=== PATIENT | female | born 1955 | race African-American/Black ===

== ENCOUNTER 2020-10-27 13:45 | Inpatient (IN) | payer MEDICARE, MEDICAID, SELFPAY ==
[2020-10-27] VITALS (17 sets, daily range): BP systolic 124–236; BP diastolic 92–144; PULSE 77–132; RESP 16–37; TEMP 36.5–36.7; O2SAT 97–100; BMI 35.0
--- NOTE | ~2020-10-27 | CT_ITS ---
EXAMINATION: CTA chest PE abdomen pel DATE: 10/27/2020 15:11 INDICATION: Shortness of breath TECHNIQUE: Computed tomography angiography (CTA) of the chest was performed with 100 mL Omnipaque-350 intravenous contrast timed to evaluate the pulmonary arteries. Subsequent postcontrast images of the abdomen and pelvis are obtained. Coronal maximum intensity projection 3D-reconstructions were create d by the technologist. The dose-length product (DLP) was 2114.24 mGy-cm. Automated exposure control a nd iterative reconstruction technique were employed. COMPARISON: None. FINDINGS: CTA CHEST: The pulmonary arteries are moderately well-opacified. Respiratory motion artifact somewhat limits the examination. No pulmonary embolism is identified. Cardiomegaly is noted. There is a moder ate-sized pericardial effusion. Small pleural effusions are present. There is no pneumothorax. There is marked enlargement of the left thyroid lobe and moderate enlargement of the right thyroid lobe. Pa tchy groundglass opacities are present throughout the lungs, worst in the right lower lobe. A small a aimee of more focal consolidation is present in the right upper lobe. There is mild right hilar and rig ht paratracheal lymphadenopathy. There are bridging osteophytes at multiple levels in the spine, cons istent with diffuse idiopathic skeletal hyperostosis (DISH). ABDOMEN/PELVIS CT: The gallbladder is surgically absent. There is mild enlargement of the common bile duct and central intrahepatic ducts which is likely due to post cholecystectomy state. The liver, sp erica, pancreas, and adrenal glands are normal. Cysts of the kidneys measure up to 4.2 cm on the right . There is calcified atherosclerosis of the aorta and many of the other arteries. No pathologically e nlarged abdominal or pelvic lymph nodes are identified. There is no free intraperitoneal gas or evide nce of bowel obstruction. The appendix is normal. There is moderate lumbar spondylosis. IMPRESSION: 1. No pulmonary embolism identified, sensitivity somewhat limited by motion artifact. 2. Cardiomegaly. 3. Moderate-sized pericardial effusion. 4. Patchy groundglass opacities of the lungs which could reflect pneumonia and/or pulmonary edema. Mo re focal consolidation in the right upper lobe likely reflects pneumonia. 5. Marked thyromegaly. Follow-up with nonemergent thyroid ultrasound is recommended. 6. Right hilar and right paratracheal lymphadenopathy, likely reactive. Reviewed, dictated and finalized at location A. K LOADER IMPRESSION: 1. No pulmonary embolism identified, sensitivity somewhat limited by motion art ifact. 2. Cardiomegaly. 3. Moderate-sized pericardial effusion. 4. Patchy groundglass opacities of the lungs which could reflect pneumonia and/ or pulmonary edema. More focal consolidation in the right upper lobe likely ref lects pneumonia. 5. Marked thyromegaly. Follow-up with nonemergent thyroid ultrasound is recomme nded. 6. Right hilar and right paratracheal lymphadenopathy, likely reactive.
--- NOTE | ~2020-10-27 | XR_ITS ---
EXAMINATION: XR chest 1V portable EXAM DATE: 10/27/2020 14:21 INDICATION: Shortness of breath. TECHNIQUE: Portable AP frontal chest x-ray was obtained. There is no prior study for comparison. FINDINGS: Severe cardiomegaly and/or pericardial effusion. There is pulmonary vascular congestion. Th ere is diffuse groundglass density airspace disease, edema and/or pneumonia most likely. No pneumotho rax. Possible small pleural effusions. There are bony degenerative changes. IMPRESSION: 1. Severe cardiomegaly and/or pericardial effusion. 2. Moderate groundglass opacity involving all lung zones, likely pneumonia and/or edema. Reviewed, dictated and finalized at location A. ROBE CUSTODIAN IMPRESSION: 1. Severe cardiomegaly and/or pericardial effusion. 2. Moderate groundglass opacity involving all lung zones, likely pneumonia and /or edema.
--- NOTE | ~2020-10-27 | XR_ITS ---
EXAMINATION: XR chest 2V DATE: 10/29/2020 09:31 INDICATION: Congestive heart failure. Dyspnea. TECHNIQUE: Frontal and lateral views of the chest were obtained. COMPARISON: Chest single view 10/27/2020, chest CT 10/27/2020 FINDINGS: There is mild atelectasis in the lower lung zones. There is a trace right pleural effusion. No pneumothorax. There is enlargement of the cardiac silhouette. Surgical clips in the right upper q uadrant are likely from cholecystectomy. IMPRESSION: 1. Trace right pleural effusion. 2. Mild atelectasis in the lower lung zones. 3. Enlargement of the cardiac silhouette, likely a combination of cardiomegaly and pericardial effusi on as seen on the prior CT. Reviewed, dictated and finalized at location B. ING AID REPAIR TECHNICIAN IMPRESSION: 1. Trace right pleural effusion. 2. Mild atelectasis in the lower lung zones. 3. Enlargement of the cardiac silhouette, likely a combination of cardiomegaly and pericardial effusion as seen on the prior CT.
--- NOTE | ~2020-10-27 | US_ITS ---
EXAMINATION: US renal BI DATE: 10/28/2020 17:13 INDICATION: Elevated creatinine TECHNIQUE: Multiple grayscale and Doppler ultrasound images of the kidneys were obtained. COMPARISON: CT from yesterday FINDINGS: The right kidney measures 8.8 x 4.5 x 4.1 cm and contains cysts which measure up to 4.3 cm. The left kidney measures 10.6 x 4.6 x 5.3 and contains cysts which measure up to 4.0 cm. The kidneys demonstrate normal parenchymal echogenicity. There is no hydronephrosis. The bladder is normal. IMPRESSION: 1. Renal cysts, otherwise normal kidneys without hydronephrosis. Reviewed, dictated and finalized at location A. IER BLOWER
--- NOTE | 2020-10-27 13:48 | ECG_ITS ---
Measurements Intervals [place] Rate: 136 P: -76 CA: 124 QRS: -31 QRSD: 129 T: 123 QT: 325 QTc: 489 Interpretive Statements ECTOPIC ATRIAL TACHYCARDIA LEFT AXIS DEVIATION INTRAVENTRICULAR CONDUCTION DELAY LEFT VENTRICULAR HYPERTROPHY AND ST-T CHANGE CANNOT RULE OUT SEPTAL INFARCT, AGE INDETERMINATE BASELINE ARTIFACT- I, II, III, AVR, AVL, AVF ABNORMAL ECG Electronically Signed On 10-27-2020 13:57:01 MECHANICAL STRIPER by Bruce Lloyd D.O.
[2020-10-27] MEDS: MAGNESIUM SULF 2 GM/WATER 50ML 2 GM/50 ML BAG IVPB (14:06)
[2020-10-27] MEDS: FUROSEMIDE INJ 40 MG/4 ML VIAL IV PUSH (14:06)
[2020-10-27] MEDS: LABETALOL HCL INJ 100 MG/20 ML VIAL 20 MG IV PUSH ×2 (14:06→17:24)
[2020-10-27 14:07] LABS: Alveolar/Arterial O2 Gradient 516.7 mmHg; Base Excess ABG -8.7 mEq/l (+/-2.0); Fractional Inspired Oxygen 100 %; HCO3 ABG 19.2 mEq/l (22.0-26.0); Oxygen Content ABG 20.3 %vol (16.0-22.0); Oxygen Saturation ABG 98.5 % (95.0-100.0); Oxyhemoglobin 96.5 % THb (90.0-100.0); PCO2 ABG 48.4 mmHg (35.0-45.0); PO2 ABG 147.9 mmHg (80.0-100.0); PO2 FiO2 Ratio Arterial Blood 1.48 %; Total Hemoglobin 14.8 g/dL (12.0-18.0); pH ABG 7.216 (7.350-7.450)
[2020-10-27 14:08] LABS: Device NON-REBREATHER MASK; Modified Allen's Test Pass; Site Drawn RIGHT RADIAL
[2020-10-27 14:10] LABS: Basophils Absolute Auto 0.1 K/mm3 (0.0-0.1); Basophils Percent Auto 0.5 % (0.2-1.2); Eosinophils Absolute Auto 0.3 K/mm3 (0-0.3); Eosinophils Percent Auto 2.4 % (0-4.4); Hematocrit 45.1 % (37.0-47.0); Hemoglobin 14.5 g/dL (12.0-15.0); Immature Granulocyte Absolute 0.04 K/mm3 (0.00-0.031); Immature Granulocyte Percent A 0.4 % (0-0.5); Lymphocytes Absolute Auto 3.87 K/mm3 (0.9-3.2); Mean Corpuscular HGB Conc 32.2 g/dl (32-36); Mean Corpuscular Hemoglobin 28.2 pg (26-34); Mean Corpuscular Volume 87.6 fl (80-100); Mean Platelet Volume 10.3 fl (7.4-10.4); Monocytes Absolute Auto 0.9 K/mm3 (0.1-0.6); Monocytes Percent Auto 7.9 % (2.6-8.5); Neutrophils Percent Auto 53.8 % (45.5-73.1); Platelet Count Result 345 k/mm3 (150-375); Red Blood Count 5.15 M/mm3 (4.2-5.4); Red Cell Distribution Width 13.9 % (11.5-14.5); White Blood Count 11.1 K/mm3 (4.5-10.0)
--- NOTE | 2020-10-27 14:16 | ED.GENADULT ---
HPI - General Adult General Chief complaint: Shortness of Breath/Dyspnea Stated complaint: SOB Source: patient Mode of arrival: EMS History of Present Illness HPI narrative: Patient is a 64 y/o female brought in by EMS for SOB. She states that she started to have severe SOB earlier today. There is no alleviating or exacerbating factor. She also has some cough. She denies any fever or chest pain. She has history of COPD and CHF. She is not on oxygen at baseline. She was given Albuterol Neb and 10 mg Decadron by EMS. Related Data Allergies Allergy/AdvReac Type Severity Reaction Status Date / Time Penicillins Allergy Rash Verified 10/27/20 13:55 Review of Systems Constitutional: Constitutional: Denies chills, Denies fever(s), Denies headache(s) and Denies weakness Eyes: Eyes: Denies blurry vision ENT: Denies headache(s) and Denies neck pain Cardiovascular: Cardiovascular: Denies chest pain and Reports dyspnea Respiratory: Respiratory: Reports cough and Reports dyspnea Gastrointestinal: Gastrointestinal: Denies abdominal pain, Denies diarrhea, Denies nausea and Denies vomiting Genitourinary: Genitourinary: Denies hematuria and Denies dysuria Musculoskeletal: Musculoskeletal: Denies back pain and Denies neck pain Neurologic: Denies headache(s) and Denies weakness [facility] Social History Social History Gender identity (if verbalized by the patient): Female Exam Const: General: well developed, in distress and anxious Orientation/consciousness: oriented to person, oriented to place, oriented to time and patient oriented x3 HENMT: Head: normocephalic Ears: external ears normal General nose exam: Normal external nose present Eyes: General: appearance normal, both eyes and all related structures Conjunctivae: conjunctivae normal Neck: Neck: normal visual inspection and full ROM Chest: Chest palpation & inspection: normal inspection of the chest and no tenderness Resp: Effort & Inspection: respiratory distress and tachypneic Auscultation: rales and wheezes Cardio: Rate: tachycardic Rhythm: regular rhythm GI: GI Palp: No abdominal tenderness and Yes Soft to palpation Skin: General skin exam: normal color and turgor normal Neuro: General: oriented to person, oriented to place, oriented to time and patient oriented x3 Cognition (Neuro): normal cognition Extrem: General: normal to inspection, full ROM and pedal edema bilaterally Psych: Appearance: grossly normal Mental Status: mental status grossly normal Affect: normal affect Course Consultations Consultation #1: Discussed SHUT OFF WORKER Lainey, who agrees to admit. Date: 10/27/20 Time: 15:44 Vital Signs Vital signs: Vital Signs Temperature 36.5 C 10/27/20 13:42 Pulse Rate 132 H 10/27/20 13:42 Respiratory Rate 37 H 10/27/20 13:42 Blood Pressure 236/144 H 10/27/20 13:42 Pulse Oximetry 97 10/27/20 13:42 Temperature 36.5 C 10/27/20 13:42 Pulse Rate 83 10/27/20 17:32 Respiratory Rate 18 10/27/20 17:32 Blood Pressure 164/114 H 10/27/20 17:32 Pulse Oximetry 98 10/27/20 17:32 Medical Decision Making Vital Signs Vital Signs: Vital Signs Temperature 36.5 C 10/27/20 13:42 Pulse Rate 132 H 10/27/20 13:42 Respiratory Rate 37 H 10/27/20 13:42 Blood Pressure 236/144 H 10/27/20 13:42 Pulse Oximetry 97 10/27/20 13:42 Temperature 36.5 C 10/27/20 13:42 Pulse Rate 83 10/27/20 17:32 Respiratory Rate 18 10/27/20 17:32 Blood Pressure 164/114 H 10/27/20 17:32 Pulse Oximetry 98 10/27/20 17:32 Lab Data Result diagrams: 10/27/20 14:03 10/27/20 14:03 Labs: Lab Results 10/27/20 10/27/20 10/27/20 Range/Units 14:03 14:03 14:03 WBC 11.1 H (4.5-10.0) K/mm3 RBC 5.15 (4.2-5.4) M/mm3 Hgb 14.5 (12.0-15.0) g/dL Hct 45.1 (37.0-47.0) % MCV 87.6 (80-100) fl MCH 28.2 (26-34) pg MCHC 32.2 (32-36) g/
--- NOTE | 2020-10-27 14:20 | PC.NURSE ---
PT TAKEN OFF NRB MASK AND PLACED ON 2 L NC O2 PER VORB EDP DR LINDSEY.
[2020-10-27 14:22] LABS: D Dimer 1.36 ug/mL (<0.48)
[2020-10-27 14:24] LABS: Alanine Aminotransferase 21 U/L (4-35); Albumin Level 4.2 g/dL (3.5-5.1); Alkaline Phosphatase 89 U/L (38-126); Anion Gap 8 mmol/L (8-16); Aspartate Amino Transferase 34 U/L (14-36); Blood Urea Nitrogen 35 mg/dL (7-17); Calcium 8.1 mg/dL (8.4-10.2); Carbon Dioxide 27 mmol/L (22-30); Chloride 106 mmol/L (98-107); Estimated CRCL calculation 46 ml/min; Estimated Glomerular Filt Rate 38; Glucose 203 mg/dL (65-105); Potassium 3.8 mmol/L (3.4-5.0); Sodium 141 mmol/L (137-145)
[2020-10-27 14:38] LABS: NT Pro B Type Natriuretic Pept 2620 PG/ML (5-100); Troponin I 0.063 ng/mL (0.000-0.034)
--- NOTE | 2020-10-27 14:46 | PC.NURSE ---
up to bedside commode - pt tolerated well. Able to speak in full sentences
[2020-10-27 14:56] LABS: Add Urine Microscopic? YES; Appearance Urine Clear (Clear); Bilirubin Urine Negative (Negative); Blood Urine Negative (Negative); Color Urine Straw (Yellow); Glucose Urine UA 2+ mg/dL (Negative); Ketones Urine Negative (Negative); Leukocyte Esterase Ur Negative LEU/UL (Negative); Mucus Urine Rare /lpf; Nitrate Urine Negative (Negative); Protein Urine 3+ mg/dL (Negative); RBC Urine 0-2 /hpf (0-2); Squamous Epithelial Cell Urine Rare /hpf (Few); Urobilinogen Urine Negative mg/dL (<2.0); WBC Urine 0-3 /hpf
--- NOTE | 2020-10-27 14:58 | PC.NURSE ---
PT TO CT SCAN VIA STRETCHER.
[2020-10-27 16:01] LABS: Fractional Inspired Oxygen 21 %; HCO3 ABG 20.5 mEq/l (22.0-26.0); Oxygen Content ABG 19.6 %vol (16.0-22.0); Oxygen Saturation ABG 97.4 % (95.0-100.0); Oxyhemoglobin 95.7 % THb (90.0-100.0); PCO2 ABG 39.9 mmHg (35.0-45.0); PO2 ABG 104.1 mmHg (80.0-100.0); PO2 FiO2 Ratio Arterial Blood 4.96 %; Site Drawn RIGHT RADIAL; Total Hemoglobin 14.5 g/dL (12.0-18.0); pH ABG 7.329 (7.350-7.450)
[2020-10-27 16:02] LABS: Device ROOM AIR
--- NOTE | 2020-10-27 16:18 | PC.NURSE ---
SPOKE TO PTS SISTER ON THE PHONE AND GAVE UPDATE PER PT VERBAL OKAY.
[2020-10-27] MEDS: amLODIPine BESYLATE 5 MG TABLET 10 MG PO (16:32)
[2020-10-27] MEDS: lisinopriL 20 MG TABLET PO (16:32)
[2020-10-27] MEDS: carvediloL 12.5 MG TABLET PO (17:01)
[2020-10-27 17:08] LABS: Troponin I 0.105 ng/mL (0.000-0.034)
--- NOTE | 2020-10-27 18:37 | ADMGEN ---
This patient, Lisa Kaur, was admitted to IMU Room 204-01. Patient/family oriented to hospital policies and general routines including ID bracelet, bed and alarms, visiting hours, pain management, procedures, bathroom and other care routines, personal items, smoking policy, room service/diet, and visiting hours. Information on how to activate the Rapid Response Team has been discussed. Patient/Family are encouraged to report perceived risks to care and to ask questions if they do not understand what they are told or what they should do.
--- NOTE | 2020-10-27 19:33 | PM.IMHP ---
H&P: HPI History of Present Illness Date/Time: 10/27/20 19:33 Chief Complaint: Increasing shortness of breath today at the store Narrative: This is a 64 year old Female with known CHF, COPD, and HTN who presented to the hospital with a complaint of increased shortness of breath that started today while standing in line at the drugstore today. She has noticed that she has had increased lower extremity swelling recently. Associated symptoms include wheezing and a productive cough of yellowish sputum. She is known to previously smoke 1 pack of cigarettes/week and quit 16 years ago. She denies any fever, chills, chest pain, palpitations, sore throat, headache, abdominal pain, dysuria, hematuria, nausea, vomiting, diarrhea, or rectal bleeding. She was given Decadron and albuterol. The patient was evaluated in the ER today and found to have a mildly elevated troponin of 0.105. CTA chest did not demonstrate a pulmonary embolism but did reveal a moderate-sized pericardial effusion and patchy groundglass opacities of the lungs which could reflect pneumonia and/or pulmonary edema. More focal consolidation in the right upper lobe likely reflects pneumonia. The patient was admitted for further care. Review of Systems Review of Systems: All systems reviewed & are unremarkable except as noted in HPI and below PMFSH Past Medical History Medical History CHF (congestive heart failure) COPD (chronic obstructive pulmonary disease) Essential (primary) hypertension Surgical History Surgical History History of knee replacement Family History Family History Sibling Hypertension Social History Social History Smoking status: Former smoker Tobacco type: cigarettes Second hand tobacco smoke exposure: No Additional smoking assessment comments: smoked a pack a week Alcohol intake: never Substance use: never Substance use type: does not use Gender identity (if verbalized by the patient): Female Spiritual care concerns: No Meds Home Medications and Allergies Home Medications Medication Instructions Recorded Confirmed Type albuterol sulfate 2 puff INHALATION PRN PRN 10/27/20 10/27/20 History amlodipine 10 mg PO DAILY 10/27/20 10/27/20 History aspirin 81 mg PO DAILY 10/27/20 10/27/20 History calcium carbonate 500 mg PO BID 10/27/20 10/27/20 History cholecalciferol (vitamin D3) 250 mcg PO DAILY 10/27/20 10/27/20 History [Vitamin D3] estradiol 0.5 mg PO DAILY 10/27/20 10/27/20 History furosemide 40 mg PO DAILY 10/27/20 10/27/20 History hydralazine 25 mg PO BID 10/27/20 10/27/20 History labetalol 200 mg PO Q12H 10/27/20 10/27/20 History tramadol 100 mg PO Q6H PRN 10/27/20 10/27/20 History potassium chloride 20 meq PO DAILY 10/28/20 10/28/20 History clonidine HCl 0.2 mg PO TID 30 Days #90 tablet 10/30/20 Rx Allergies Allergy/AdvReac Type Severity Reaction Status Date / Time Penicillins Allergy Intermediate Swelling Verified 10/27/20 18:39 of Lip/Tongue/Throat Vital Signs Vital Signs - 24 hr 10/27/20 13:42 10/27/20 14:04 10/27/20 14:14 Temperature 36.5 C Pulse Rate 132 H 123 H 85 Respiratory Rate 37 H 26 H Blood Pressure 236/144 H 149/95 H Pulse Oximetry 97 99 10/27/20 14:15 10/27/20 15:26 10/27/20 15:54 Temperature Pulse Rate 92 93 Respiratory Rate 20 29 H Blood Pressure 173/116 H 193/124 H Pulse Oximetry 100 99 100 10/27/20 17:01 10/27/20 17:23 10/27/20 17:24 Temperature Pulse Rate 81 82 Respiratory Rate Blood Pressure 174/114 H Pulse Oximetry 10/27/20 17:32 10/27/20 18:00 10/27/20 18:25 Temperature 36.7 C Pulse Rate 83 86 80 Respiratory Rate 18 16 Blood Pressure 164/114 H 124/98 H Pulse Oximetry 98 99 Exam Const: Gener
--- NOTE | 2020-10-27 19:45 | ECG_ITS ---
Measurements Intervals [place] Rate: 82 P: 47 WI: 204 QRS: -38 QRSD: 122 T: 127 QT: 451 QTc: 529 Interpretive Statements SINUS RHYTHM POSSIBLE LEFT ATRIAL ENLARGEMENT LEFT AXIS DEVIATION INTRAVENTRICULAR CONDUCTION DELAY LEFT VENTRICULAR HYPERTROPHY AND ST-T CHANGE POOR R WAVE PROGRESSION, ANTERIOR LEADS BORDERLINE T WAVE ABNORMALITY- ANTEROLATERAL LEADS BASELINE ARTIFACT- V6 ABNORMAL ECG Electronically Signed On 10-27-2020 21:53:10 REVOLVING INVENTORY CLERK by Bruce Lloyd D.O.
[2020-10-27] MEDS: ALBUTEROL SULFATE (*SP) AEROSOL 1 PUFF 2 PUFF INHALATION (20:49)
[2020-10-27 21:01] LABS: Troponin I 0.143 ng/mL (0.000-0.034)
[2020-10-27 21:22] LABS: Glucose Point of Care 188 (65-105)
[2020-10-27] MEDS: ENOXAPARIN 40 MG/0.4 ML SYRINGE SUB-Q (21:39)
[2020-10-27] MEDS: LABETALOL HCL 100 MG TABLET 200 MG PO (21:40)
[2020-10-27 22:35] LABS: SARS-CoV-2 RNA PCR Negative
[2020-10-28] VITALS (17 sets, daily range): BP systolic 118–164; BP diastolic 72–96; PULSE 67–91; RESP 20–22; TEMP 36.2–36.6; O2SAT 97–99
[2020-10-28 05:11] LABS: Basophils Percent Auto 0.1 % (0.2-1.2); Hematocrit 37.9 % (37.0-47.0); Hemoglobin 12.6 g/dL (12.0-15.0); Immature Granulocyte Absolute 0.04 K/mm3 (0.00-0.031); Immature Granulocyte Percent A 0.4 % (0-0.5); Lymphocytes Absolute Auto 0.91 K/mm3 (0.9-3.2); Lymphocytes Percent Auto 8.7 % (18.3-44.2); Mean Corpuscular HGB Conc 33.2 g/dl (32-36); Mean Corpuscular Hemoglobin 27.8 pg (26-34); Mean Corpuscular Volume 83.5 fl (80-100); Mean Platelet Volume 10.1 fl (7.4-10.4); Monocytes Absolute Auto 0.6 K/mm3 (0.1-0.6); Monocytes Percent Auto 5.7 % (2.6-8.5); Neutrophils Percent Auto 85.1 % (45.5-73.1); Platelet Count Result 249 k/mm3 (150-375); Red Blood Count 4.54 M/mm3 (4.2-5.4); Red Cell Distribution Width 13.7 % (11.5-14.5); White Blood Count 10.5 K/mm3 (4.5-10.0)
[2020-10-28] MEDS: ALBUTEROL SULFATE (*SP) AEROSOL 1 PUFF 2 PUFF INHALATION (05:19)
[2020-10-28 05:24] LABS: Hemoglobin A1C 5.4 % (<5.7)
[2020-10-28 05:26] LABS: Anion Gap 6 mmol/L (8-16); Blood Urea Nitrogen 38 mg/dL (7-17); Calcium 7.9 mg/dL (8.4-10.2); Carbon Dioxide 28 mmol/L (22-30); Chloride 103 mmol/L (98-107); Estimated CRCL calculation 42 ml/min; Estimated Glomerular Filt Rate 42; Glucose 104 mg/dL (65-105); Magnesium 1.7 mg/dL (1.6-2.3); Potassium 3.3 mmol/L (3.4-5.0); Sodium 137 mmol/L (137-145)
--- NOTE | 2020-10-28 06:00 | ECHO_ITS ---
Patient Info Name: Lisa Kaur Age: 64 years : 1955 Gender: Female Ht: 68 in Wt: 230 lbs BSA: 2.28 m2 BP: 164 / 94 mmHg Heart Rhythm: Sinus Rhythm Exam Date: 10/28/2020 7:54 AM Exam Location: [facility] Patient Status: Inpatient Admit Date: 10/27/2020 Staff Ordering Physician: Jennifer Hale MD Retail Maintenance Technician: Mj Hebert, LALA, RT Attending Provider: Abhijeet Browning MD Referring Physician: Geoffrey LOYA; Exam Type: CA echo dop color flow w con Study Info Indications I31.3 - Pericardial effusion (noninflammatory) I50.9 - Heart failure, unspecified Complete two-dimensional, color flow and Doppler transthoracic echocardiogram is performed. Strain analysis performed. Summary 1. Complete two-dimensional, color flow and Doppler transthoracic echocardiogram is performed. 2. There is normal left ventricular size with severe concentric hypertrophy. The overall systolic function appears normal with the ejection fraction is 60-65% and no segmental wall motion abnormalities. However the global longitudinal strain is severely diminished at -6% suggesting systolic dysfunction. There is grade 2 diastolic dysfunction. 3. Right ventricular hypertrophy with normal function. 4. Left atrial chamber dimension is severely enlarged. 5. The left atrial septum is bowed to the right suggesting elevated left atrial pressure. 6. There is small pericardial effusion, measuring 0. 7 cm anteriorly 1.4 cm posteriorly, with no evidence of tamponade physiology. 7. Pulmonary pressure cannot be estimated on study. 8. Normal sinus rhythm. Left Ventricle Left ventricular chamber dimension is normal. Left ventricular systolic function is normal, estimated at 60-65%. There is severe concentric increased left ventricular wall thickness. Left ventricular septal wall motion is normal. The left ventricular diastolic function is grade II diastolic dysfunction. Global longitudinal strain is severely elevated at 6 %. There is normal left ventricular size with severe concentric hypertrophy. The overall systolic function appears normal with the ejection fraction is 60-65% and no segmental wall motion abnormalities. However the global longitudinal strain is severely diminished at -6% suggesting systolic dysfunction. There is grade 2 diastolic dysfunction. Right Ventricle Right ventricular chamber dimension is normal. Right ventricular systolic function is normal. Left Atria Left atrial chamber dimension is severely enlarged. Right Atria Right atrial chamber dimension is normal. Aortic Valve The aortic valve is trileaflet. There is no aortic valve sclerosis. There is no aortic valve stenosis. There is trace aortic valve regurgitation. Pulmonic Valve The pulmonic valve is normal. There is no pulmonic valve stenosis. There is no pulmonic regurgitation. Mitral Valve The mitral valve has normal leaflets. There is no mitral valve stenosis. There is trace mitral valve regurgitation. Tricuspid Valve The tricuspid valve leaflets are normal. There is no significant tricuspid valve stenosis. There is no tricuspid valve regurgitation. No pulmonary hypertension, estimated pulmonary arterial systolic pressure is Empty. Pericardium/Pleural The pericardium appears normal. There is small pericardial effusion, measuring 0. 7 cm anteriorly 1.4 cm posteriorly, with no evidence of tamponade physiology. Inferior Vena Cava Normal inferior vena cava with >50% collapse upon inspiration consisten
--- NOTE | 2020-10-28 07:22 | PC.NURSE ---
Pulsus Paradoxsis measurement approx 5mmg. called and aware
[2020-10-28] MEDS: PERFLUTREN LIPID MICROSPHERES 1.5 ML VIAL DILUTED TO 10 ML TOTAL VOLUME IV PUSH (08:27)
[2020-10-28] MEDS: amLODIPine BESYLATE 5 MG TABLET 10 MG PO (08:52)
[2020-10-28] MEDS: cloNIDine HCL 0.1 MG TABLET PO ×3 (08:53→17:36)
[2020-10-28] MEDS: ASPIRIN 81 MG ENTERIC TABLET PO (08:53)
[2020-10-28] MEDS: CALCIUM CARBONATE (TUMS) 500 MG (200 MG ELEMENTAL) PO ×2 (08:53→17:36)
[2020-10-28] MEDS: hydrALAZINE HCL 25 MG TABLET PO ×2 (08:54→17:36)
[2020-10-28] MEDS: CHOLECALCIFEROL 1,000 UNITS TABLET 5000 UNITS PO (08:54)
[2020-10-28] MEDS: estradioL 0.5 MG TABLET PO (08:55)
[2020-10-28] MEDS: LABETALOL HCL 100 MG TABLET 200 MG PO ×2 (08:55→21:11)
[2020-10-28] MEDS: FUROSEMIDE INJ 40 MG/4 ML VIAL IV PUSH ×2 (08:57→17:36)
[2020-10-28] MEDS: POTASSIUM CHLORIDE 20 MEQ TABLET PO ×2 (11:20)
[2020-10-28 12:44] LABS: Glucose Point of Care 108 (65-105)
--- NOTE | 2020-10-28 16:22 | PM.IMPN ---
Progress Note: A&P Assessment and Plan (1) Severe hypertension: Code(s): I10 - Essential (primary) hypertension Status: Acute Assessment and Plan: Re started her home meds Continue to monitor On Telemetry (2) Elevated troponin: Code(s): R77.8 - Other specified abnormalities of plasma proteins Status: Acute Assessment and Plan: Will trend Likely related to uncontrolled HTN. Cardiology consult. (3) Pulmonary edema: Qualifiers: Chronicity: acute Qualified Code(s): J81.0 - Acute pulmonary edema Code(s): J81.1 - Chronic pulmonary edema Status: Acute Assessment and Plan: Likely related to uncontrolled HTN Lasix 40 mg bid BNP is pending. (4) Pericardial effusion: Code(s): I31.3 - Pericardial effusion (noninflammatory) Status: Acute Assessment and Plan: 2DECHO pending Likely secondary to uncontrolled HTN. However patient was found to have thyromegaly wether this is contributing or not it's a possibility. (5) NICK (acute kidney injury): Code(s): N17.9 - Acute kidney failure, unspecified Status: Acute Assessment and Plan: Will obtain a renal US Repeat BMP in am (6) COPD (chronic obstructive pulmonary disease): Qualifiers: COPD type: unspecified COPD Qualified Code(s): J44.9 - Chronic obstructive pulmonary disease, unspecified Code(s): J44.9 - Chronic obstructive pulmonary disease, unspecified Status: Acute Assessment and Plan: Continue breathing treatments However not actively wheezing. (7) Abnormal glucose: Code(s): R73.09 - Other abnormal glucose Status: Acute Assessment and Plan: ISS as needed No history of diabetes Will monitor. (8) Thyromegaly: Code(s): E01.0 - Iodine-deficiency related diffuse (endemic) goiter Status: Acute Assessment and Plan: Will follow up in the outpatient setting. (9) Lung infiltrate: Code(s): R91.8 - Other nonspecific abnormal finding of lung field Status: Acute Assessment and Plan: Started Levofloxacin Although low suspicion clinically Subjective Date/time seen: 10/28/20 16:22 No complains at this. time. Review of Systems Review of Systems: Narrative: Patient states that she had sudden onset sob while going about her daily routine and decided to come to the ED. Constitutional: Comments: no weight changes, no fevers, no rigors, no chills. ENT: Comments: no ear ache, no throat pain, nasal discharge. Cardiovascular: Comments: chest pain, sob, uncontrolled HTN. Respiratory: Comments: No cough, no sputum production. Gastrointestinal: Comments: no n/v/diarrhea/abdominal pain. Musculoskeletal: Comments: B/L LE ankle swelling. Integumentary/Breasts: Comments: no rashes. Neurologic: Comments: no sensory motor deficit. Exam Narrative: Exam Narrative: Patient lying in bed. Const: General: no acute distress, alert, awake and Physically active Nutritional Appearance: average body habitus Orientation/consciousness: patient oriented x3 Limitations: no limitations HENMT: Head: normal to inspection and normocephalic Ears: hearing grossly normal bilaterally General nose exam: Normal external nose present Face and sinus: normal facial exam Eyes: Pupils: Equal, round and reactive pupils present EOM: EOMs intact bilaterally Neck: Neck: no lymphadenopathy, supple and no JVD Lymphatic: no lymphadenopathy noted Resp: Effort & Inspection: able to speak in complete sentences Auscultation: clear to auscultation bilaterally and diminished lung sounds Cardio: Jugular venous distension: no JVD Rate: regular rate Rhythm: regular rhythm GI: GI Palp: Yes Soft to palpation and Yes No hepatosplenomegaly present Skin: General skin exam: normal color Lesions: no lesions Rashes: no rashes Wounds: no wounds Neuro: General: patient oriented x3 and CN's II-XI intact bilaterally Cranial ne
[2020-10-28 16:47] LABS: Basophils Percent Auto 0.2 % (0.2-1.2); Eosinophils Absolute Auto 0.1 K/mm3 (0-0.3); Eosinophils Percent Auto 0.6 % (0-4.4); Hematocrit 36.6 % (37.0-47.0); Hemoglobin 12.1 g/dL (12.0-15.0); Immature Granulocyte Absolute 0.02 K/mm3 (0.00-0.031); Immature Granulocyte Percent A 0.2 % (0-0.5); Lymphocytes Percent Auto 17.6 % (18.3-44.2); Mean Corpuscular HGB Conc 33.1 g/dl (32-36); Mean Corpuscular Hemoglobin 27.9 pg (26-34); Mean Corpuscular Volume 84.3 fl (80-100); Mean Platelet Volume 9.6 fl (7.4-10.4); Monocytes Percent Auto 9.2 % (2.6-8.5); Neutrophils Absolute Auto 7.8 K/mm3 (1.3-6.7); Neutrophils Percent Auto 72.2 % (45.5-73.1); Platelet Count Result 223 k/mm3 (150-375); Red Blood Count 4.34 M/mm3 (4.2-5.4); Red Cell Distribution Width 13.8 % (11.5-14.5); White Blood Count 10.8 K/mm3 (4.5-10.0)
[2020-10-28 16:59] LABS: Anion Gap 5 mmol/L (8-16); Blood Urea Nitrogen 46 mg/dL (7-17); Calcium 7.7 mg/dL (8.4-10.2); Carbon Dioxide 32 mmol/L (22-30); Chloride 101 mmol/L (98-107); Estimated CRCL calculation 32 ml/min; Estimated Glomerular Filt Rate 30; Glucose 103 mg/dL (65-105); Sodium 138 mmol/L (137-145)
[2020-10-28 17:10] LABS: NT Pro B Type Natriuretic Pept 8270 PG/ML (5-100)
[2020-10-28 17:21] LABS: Troponin I 0.125 ng/mL (0.000-0.034)
[2020-10-28 18:03] LABS: Glucose Point of Care 100 (65-105)
[2020-10-28 20:45] LABS: Glucose Point of Care 150 (65-105)
[2020-10-28] MEDS: ENOXAPARIN 40 MG/0.4 ML SYRINGE SUB-Q (21:11)
[2020-10-29] VITALS (15 sets, daily range): BP systolic 109–160; BP diastolic 63–107; PULSE 63–89; RESP 16–20; TEMP 35.8–36.9; O2SAT 95–100
[2020-10-29] MEDS: ALBUTEROL SULFATE (*SP) AEROSOL 1 PUFF 2 PUFF INHALATION ×3 (01:00→21:18)
--- NOTE | 2020-10-29 08:44 | PM.CNCAR ---
Assessment and Plan Assessment and plan (1) Acute diastolic CHF (congestive heart failure): Code(s): I50.31 - Acute diastolic (congestive) heart failure Status: Acute Assessment and Plan: Symptoms, signs suggestive of acute diastolic heart failure exacerbation. Ejection fraction exceeds 65% with severe left atrial enlargement. on presentation EKG showed possible atrial tachycardia which she had no recurrence while in the hospital. She is currently receiving Lasix 40 mg IV b.i.d.. She has worsening renal function with increased creatinine from 1.4-2. However clinically she still has some lower limb edema and elevated JVP. Will repeat chest x-ray today. If chest x-ray shows pulmonary vascular congestion will introduce higher dosage of Lasix. (2) Pericardial effusion: Code(s): I31.3 - Pericardial effusion (noninflammatory) Status: Acute Assessment and Plan: Small pericardial effusion without tamponade. (3) NICK (acute kidney injury): Code(s): N17.9 - Acute kidney failure, unspecified Status: Acute Assessment and Plan: Acute and chronic kidney injury. Could be related to diuretics however she received doses CTA with contrast on October 26 and could be related to contrast kidney injury (4) Severe hypertension: Code(s): I10 - Essential (primary) hypertension Status: Acute Assessment and Plan: On amlodipine 10 mg daily, hydralazine 25 mg b.i.d. and labetalol 200 mg q.12 hours. Suggest increase clonidine to 0.2 t.i.d. History of Present Illness History of Present Illness Consult date/time: Date of since 10/29/20 08:44 Requesting physician: Abhijeet Browning MD Consult reason: congestive heart failure Reason For Visit: CHF Narrative: This 64-year-old female with past medical history HF, COPD, and HTN who presented to the hospital with a complaint of increased shortness of breath that started while standing in line at the drugstore today. Denies chest pain. She has noticed that she has had increased lower extremity swelling 1 day prior to admission. Denies cough, fever, chills. Blood pressure on admission 230/110. She never smoked cigarettes. She used to work in the [employer] industry. She drinks alcohol likely. She states she is compliant with taking medications. She follows up with regional sales manager in [place] dr Gasca. She denies COVID contacts as she states. D-dimer in high at 1.36, creatinine on admission 1.4 and today is 2, cell count on admission 11 K, troponins 0.063, .143 and0.125, chest x-ray reviewed and analyzed myself shows bilateral pulmonary infiltrates. CTA done on October 27 shows bilateral ground-glass opacities, moderate pericardial effusion, cardiomegaly. Echocardiogram done during this admission shows ejection fraction 65%, severe LVH, severe left atrial enlargement, EKG reviewed and analyzed myself shows possible atrial tachycardia. Repeat EKG shows sinus rhythm with LVH, incomplete left bundle-branch block. COVID negative Review of Systems Constitutional: Constitutional: Denies chills, Denies fever(s) and Denies poor appetite Eyes: Eyes: Denies eye discharge, Denies loss of vision, Denies eye pain and Denies photophobia ENT: Denies dizziness, Denies epistaxis, Denies nasal congestion and Denies sore throat Cardiovascular: Cardiovascular: Denies chest pain, Denies syncope, Reports leg edema, Denies palpitations, Reports dyspnea and Reports dyspnea on exertion Respiratory: Respiratory: Denies cough, Reports dyspnea, Reports dyspnea on exertion and Denies wheezing Gastrointestinal: Gastrointestinal: Denies abdominal pain, Denies diarrhea, Denies nausea and Denies vomiting Genitourinary: Genitourinary: Denies hematuria, Denies genital lesions and Denies dysuria Musculoskeletal: Musculoskeletal: Denies arthralgias, Denies joint swelling and Denies numbness Integumentary/Breasts: Skin/Breast: Denies pruritus and Denies rash Neurologic:
[2020-10-29] MEDS: CHOLECALCIFEROL 1,000 UNITS TABLET 5000 UNITS PO (09:51)
[2020-10-29] MEDS: ASPIRIN 81 MG ENTERIC TABLET PO (09:52)
[2020-10-29] MEDS: CALCIUM CARBONATE (TUMS) 500 MG (200 MG ELEMENTAL) PO ×2 (09:52→17:10)
[2020-10-29] MEDS: cloNIDine HCL 0.1 MG TABLET PO (09:53)
[2020-10-29] MEDS: estradioL 0.5 MG TABLET PO (09:54)
[2020-10-29] MEDS: amLODIPine BESYLATE 5 MG TABLET 10 MG PO (09:54)
[2020-10-29] MEDS: hydrALAZINE HCL 25 MG TABLET PO ×2 (09:55→17:10)
[2020-10-29] MEDS: LABETALOL HCL 100 MG TABLET 200 MG PO ×2 (09:55→21:17)
[2020-10-29] MEDS: FUROSEMIDE INJ 40 MG/4 ML VIAL IV PUSH ×3 (10:26→17:10)
[2020-10-29 12:34] LABS: Glucose Point of Care 84 (65-105)
[2020-10-29 12:38] LABS: Glucose Point of Care 90 (65-105)
[2020-10-29] MEDS: cloNIDine HCL 0.2 MG TABLET PO ×2 (13:18→17:10)
[2020-10-29 15:42] LABS: Basophils Percent Auto 0.6 % (0.2-1.2); Eosinophils Absolute Auto 0.2 K/mm3 (0-0.3); Eosinophils Percent Auto 2.3 % (0-4.4); Hematocrit 35.2 % (37.0-47.0); Hemoglobin 11.8 g/dL (12.0-15.0); Immature Granulocyte Absolute 0.01 K/mm3 (0.00-0.031); Immature Granulocyte Percent A 0.2 % (0-0.5); Lymphocytes Absolute Auto 1.97 K/mm3 (0.9-3.2); Lymphocytes Percent Auto 29.7 % (18.3-44.2); Mean Corpuscular HGB Conc 33.5 g/dl (32-36); Mean Corpuscular Hemoglobin 28.4 pg (26-34); Mean Corpuscular Volume 84.6 fl (80-100); Mean Platelet Volume 10.1 fl (7.4-10.4); Monocytes Absolute Auto 0.7 K/mm3 (0.1-0.6); Monocytes Percent Auto 10.3 % (2.6-8.5); Neutrophils Absolute Auto 3.8 K/mm3 (1.3-6.7); Neutrophils Percent Auto 56.9 % (45.5-73.1); Platelet Count Result 247 k/mm3 (150-375); Red Blood Count 4.16 M/mm3 (4.2-5.4); White Blood Count 6.6 K/mm3 (4.5-10.0)
[2020-10-29 15:54] LABS: Anion Gap 5 mmol/L (8-16); Blood Urea Nitrogen 47 mg/dL (7-17); Calcium 7.6 mg/dL (8.4-10.2); Carbon Dioxide 28 mmol/L (22-30); Chloride 104 mmol/L (98-107); Estimated CRCL calculation 32 ml/min; Estimated Glomerular Filt Rate 30; Glucose 106 mg/dL (65-105); Potassium 3.7 mmol/L (3.4-5.0); Sodium 137 mmol/L (137-145)
--- NOTE | 2020-10-29 16:32 | PM.IMPN ---
Progress Note: A&P Assessment and Plan (1) Acute diastolic CHF (congestive heart failure): Code(s): I50.31 - Acute diastolic (congestive) heart failure Status: Acute Assessment and Plan: Likely secondary to hypertensive emergency. 2DECHO reviewed Diuresing Home meds re started Appreciate Cardiology consult (2) Lung infiltrate: Code(s): R91.8 - Other nonspecific abnormal finding of lung field Status: Acute Assessment and Plan: Likely secondary to pulmonary edema Have cleared after diuresis Will discontinue antibiotics. (3) NICK (acute kidney injury): Code(s): N17.9 - Acute kidney failure, unspecified Status: Acute Assessment and Plan: Likely to be pre renal due to diuresis. 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 (5) Elevated troponin: Code(s): R77.8 - Other specified abnormalities of plasma proteins Status: Acute Assessment and Plan: Likely secondary to uncontrolled HTN Will trend Cardiology following (6) Pericardial effusion: Code(s): I31.3 - Pericardial effusion (noninflammatory) Status: Acute Assessment and Plan: Secondary to acute on chronic diastolic heart failure. 2DECHO reviewed (7) Suspected 2019 novel coronavirus infection: Code(s): Z20.822 - Contact with and (suspected) exposure to COVID-19 Status: Acute Assessment and Plan: Ruled out (8) COPD (chronic obstructive pulmonary disease): Qualifiers: COPD type: unspecified COPD Qualified Code(s): J44.9 - Chronic obstructive pulmonary disease, unspecified Code(s): J44.9 - Chronic obstructive pulmonary disease, unspecified Status: Acute Assessment and Plan: Less likely Not actively wheezing. (9) Pulmonary edema: Qualifiers: Chronicity: acute Qualified Code(s): J81.0 - Acute pulmonary edema Code(s): J81.1 - Chronic pulmonary edema Status: Acute Assessment and Plan: Resolved Diuresing. (10) Severe hypertension: Code(s): I10 - Essential (primary) hypertension Status: Acute Assessment and Plan: Home meds re started BP improved Subjective Date/time seen: 10/29/20 16:32 I feel better. Review of Systems Review of Systems: Narrative: No new issues overnight. Constitutional: Comments: no fevers, no rigors, no chills. ENT: Comments: no nasal congestion, no throat pain, no ear ache. Cardiovascular: Comments: no chest pain, no sob. Respiratory: Comments: no cough, no sputum production. Gastrointestinal: Comments: no n/v/abdominal pain. Musculoskeletal: Comments: no muscle aches or pain. Neurologic: Comments: no sensory motor deficit. Exam Narrative: Exam Narrative: Sitting in bed. Const: General: comfortable, no acute distress, alert, awake and Physically active Nutritional Appearance: average body habitus Orientation/consciousness: patient oriented x3 Limitations: no limitations HENMT: Head: normal to inspection and normocephalic Face and sinus: normal facial exam Eyes: General: appearance normal, both eyes and all related structures Pupils: Equal, round and reactive pupils present EOM: EOMs intact bilaterally Neck: Neck: no lymphadenopathy, supple and no JVD Resp: Effort & Inspection: able to speak in complete sentences Auscultation: clear to auscultation bilaterally Cardio: Rate: regular rate Rhythm: regular rhythm Heart sounds: Other heart sounds present (no rubs, no gallops.) GI: GI Palp: Yes Soft to palpation and Yes No hepatosplenomegaly present Skin: Rashes: no rashes Neuro: General: patient oriented x3 and CN's II-XI intact bilaterally Cranial nerves: Yes CN's II-XII intact bilaterally and Yes Equal, round and reactive pupils present Cognition (Neuro): normal c
[2020-10-29 16:46] LABS: Glucose Point of Care 118 (65-105)
[2020-10-29 20:35] LABS: Glucose Point of Care 115 (65-105)
[2020-10-29] MEDS: ENOXAPARIN 40 MG/0.4 ML SYRINGE SUB-Q (21:17)
[2020-10-30] VITALS (7 sets, daily range): BP systolic 114–143; BP diastolic 76–98; PULSE 64–80; RESP 16–18; TEMP 36.4–36.6; O2SAT 99–100
[2020-10-30 08:16] LABS: Glucose Point of Care 89 (65-105)
--- NOTE | 2020-10-30 08:17 | PM.PNCARD ---
Progress Note: A&P Additional Plan 64-year-old black female with: Diastolic dysfunction and mild volume overload upon admission. This has been resolved. Hypertension medication has been advanced as mentioned above. She is asymptomatic this morning euvolemic and there does not appear to be ongoing cardiac reason for hospitalization. As such I am going to sign off of her inpatient case as of now. As she has establish cardiology follow-up elsewhere we will not be making appointments in our office. Ty Epstein MD [facility] Subjective Date/time seen: Date of service: 10/30/20 08:17 Interval history: 64-year-old female with: Hypertension, chronic renal insufficiency and apparently evidence of diastolic dysfunction. Admitted with some fluid overload and shortness of breath. Patient is asymptomatic this morning. No shortness of breath reports that edema has largely resolved. Exam Const: General: comfortable and no acute distress Other: Overweight black female comfortable cooperative lying in bed watching television HENMT: Mouth: Yes moist mucous membranes Eyes: Sclera: sclerae normal Pupils: Equal, round and reactive pupils present Neck: Neck: supple and no JVD Other: No carotid bruits audible Resp: Effort & Inspection: normal respiratory effort Auscultation: clear to auscultation bilaterally Cardio: Rate: regular rate Rhythm: regular rhythm GI: GI Palp: Yes Soft to palpation Auscultation: normal bowel sounds Neuro: Cognition (Neuro): normal cognition Extrem: General: normal to inspection Objective Data Vital Signs Vital Signs: Vital Signs - 24 hr 10/29/20 09:55 10/29/20 10:00 10/29/20 12:00 Temperature 36.9 C Pulse Rate 69 74 68 Respiratory Rate 18 Blood Pressure 109/63 Pulse Oximetry 95 10/29/20 13:22 10/29/20 14:00 10/29/20 16:00 Temperature 35.8 C L Pulse Rate 70 75 77 Respiratory Rate 18 Blood Pressure 122/80 121/80 Pulse Oximetry 99 10/29/20 19:47 10/29/20 20:00 10/29/20 21:17 Temperature 36.9 C Pulse Rate 70 63 68 Respiratory Rate 16 Blood Pressure 119/73 Pulse Oximetry 100 10/29/20 22:00 10/30/20 00:00 10/30/20 02:00 Temperature 36.6 C Pulse Rate 65 68 67 Respiratory Rate 16 Blood Pressure 116/76 Pulse Oximetry 100 10/30/20 04:00 10/30/20 06:00 Temperature 36.5 C Pulse Rate 68 64 Respiratory Rate 16 Blood Pressure 132/82 Pulse Oximetry 100 Intake/Output Intake/Output: Intake & Output 10/27/20 10/28/20 10/29/20 10/30/20 23:59 23:59 23:59 23:59 Intake Total 50 1660 1400 350 Output Total 0 1200 1250 400 Balance 50 460 150 -50 Meds/Results Medications: Active Medications Generic Name Dose Route Start Last Admin Trade Name Freq PRN Reason Stop Dose Admin Acetaminophen 650 mg 10/27/20 19:46 Acetaminophen 325 Mg Tablet PO Q4H PRN Mild Pain (1-3) or Fever Albuterol 2 puff 10/27/20 20:00 10/30/20 03:50 Albuterol Sulfate (*Sp) Aerosol 1 Puff INHALATION Not Given Q6HRT GREG Albuterol 2 puff 10/27/20 19:45 Albuterol Sulfate (*Sp) Aerosol 1 Puff INHALATION Q6HRT PRN Shortness Of Breath Amlodipine Besylate 10 mg 10/28/20 09:00 10/29/20 09:54 Amlodipine Besylate 5 Mg Tablet PO 10 mg DAILY GREG Administration Aspirin 81 mg 10/28/20 09:00 10/29/20 09:52 Aspirin 81 Mg Enteric Tablet PO 81 mg QAM GREG Administration Calcium Carbonate 200 mg 10/28/20 09:00 10/29/20 17:10 Calcium Carbonate (Tums) 500 Mg (200 Mg Elemental) PO 200 mg BID GREG Administration Clonidine HCl 0.2 mg 10/29/20 13:00 10/29/20 17:10 Clonidine Hcl 0.2 Mg Tablet PO 0.2 mg TID GREG Administration Dextrose 12.5 gm 10/27/20 19:57 Dextrose 50% 25 Gm/50 Ml Syringe IV PUSH PRN PRN Hypoglycemia Protocol Enoxaparin Sodium 40 mg 10/27/20 21:00 10/29/20 21:17 Enoxaparin 40 Mg/0.4 Ml Syringe SUB-Q 40 mg Q24H GREG Administration Estradio
[2020-10-30] MEDS: amLODIPine BESYLATE 5 MG TABLET 10 MG PO (08:29)
[2020-10-30] MEDS: estradioL 0.5 MG TABLET PO (08:30)
[2020-10-30] MEDS: hydrALAZINE HCL 25 MG TABLET PO (08:30)
[2020-10-30] MEDS: ASPIRIN 81 MG ENTERIC TABLET PO (08:30)
[2020-10-30] MEDS: CALCIUM CARBONATE (TUMS) 500 MG (200 MG ELEMENTAL) PO (08:30)
[2020-10-30] MEDS: POTASSIUM CHLORIDE 20 MEQ TABLET PO (08:30)
[2020-10-30] MEDS: LABETALOL HCL 100 MG TABLET 200 MG PO (08:31)
[2020-10-30] MEDS: CHOLECALCIFEROL 1,000 UNITS TABLET 5000 UNITS PO (08:32)
[2020-10-30] MEDS: cloNIDine HCL 0.2 MG TABLET PO ×2 (08:33→13:07)
[2020-10-30] MEDS: FUROSEMIDE 40 MG TABLET PO (08:48)
[2020-10-30 12:18] LABS: Glucose Point of Care 80 (65-105)
--- NOTE | 2020-10-30 13:28 | PM.DS ---
DS: Admitting Diagnosis Admitting Diagnosis Admitting Diagnosis: Severe hypertension: - Essential (primary) hypertension Assessment and Plan: Re started her home meds Continue to monitor On Telemetry (2) Elevated troponin: - Other specified abnormalities of plasma proteins Assessment and Plan: Will trend Likely related to uncontrolled HTN. Cardiology consult. (3) Pulmonary edema: Qualifiers: Chronicity: acute Qualified Code(s): J81.0 - Acute pulmonary edema - Chronic pulmonary edema Assessment and Plan: Likely related to uncontrolled HTN Lasix 40 mg bid BNP is pending. (4) Pericardial effusion: Pericardial effusion (noninflammatory) Status: Acute Assessment and Plan: 2DECHO pending Likely secondary to uncontrolled HTN. However patient was found to have thyromegaly wether this is contributing or not it's a possibility. (5) NICK (acute kidney injury): - Acute kidney failure, unspecified Status: Acute Assessment and Plan: Will obtain a renal US Repeat BMP in am (6) COPD (chronic obstructive pulmonary disease): COPD type: unspecified COPD - Chronic obstructive pulmonary disease, unspecified - Chronic obstructive pulmonary disease, unspecified Assessment and Plan: Continue breathing treatments However not actively wheezing. (7) Abnormal glucose: - Other abnormal glucose Status: Acute Assessment and Plan: ISS as needed No history of diabetes Will monitor. (8) Thyromegaly: - Iodine-deficiency related diffuse (endemic) goiter Status: Acute Assessment and Plan: Will follow up in the outpatient setting. 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 Status: Acute (7) Abnormal glucose: Code(s): R73.09 - Other abnormal glucose Status: Acute (8) Renal failure: Qualifiers: Renal failure chronicity: unspecified chronicity Qualified Code(s): N19 - Unspecified kidney failure Code(s): N19 - Unspecified kidney failure Status: Acute (9) Pericardial effusion: Code(s): I31.3 - Pericardial effusion (noninflammatory) Status: Acute (10) Suspected 2019 novel coronavirus infection: Code(s): Z20.822 - Contact with and (suspected) exposure to COVID-19 Status: Acute (11) Dyspnea: Qualifiers: Dyspnea type: unspecified Qualified Code(s): R06.00 - Dyspnea, unspecified Code(s): R06.00 - Dyspnea, unspecified Status: Acute (12) COPD (chronic obstructive pulmonary disease): Qualifiers: COPD type: unspecified COPD Qualified Code(s): J44.9 - Chronic obstructive pulmonary disease, unspecified Code(s): J44.9 - Chronic obstructive pulmonary disease, unspecified Status: Acute (13) Acute respiratory failure: Qualifiers: Respiratory failure complication: unspecified whether with hypoxia or hypercapnia Qualified Code(s): J96.00 - Acute respiratory failure, unspecified whether with hypoxia or hypercapnia Code(s): J96.00 - Acute respiratory failure, unspecified whether with hypoxia or hypercapnia Status: Acute (14)
--- NOTE | 2020-10-30 14:52 | PC.NURSE ---
Pt discharged home-pt gas station cashier is Dr. Mulligan - pt to follow up with gas station cashier in 1 week; pt instructed to monitor Blood pressure and to record;instructed to be compliant with medications- pt acknowledged understanding; pt to follow up with Dr. rose in 2 weeks; Discharged home via wheelchair accompanied by staff- personal belongings with pt
== END 2020-10-30 14:55 | disposition home or self-care (01) | DRG 292 ==
LOC: ANHED 14:36 → ANHIMU 16:48
PROVIDERS: Family Medicine; Admitting Provider Family Medicine; Emergency Provider Emergency Medicine; Visit Provider Internal Medicine
DX: I11.0 Hypertensive heart disease with heart failure (principal); I31.3 Pericardial effusion (noninflammatory); I16.1 Hypertensive emergency; N17.9 Acute kidney failure, unspecified; J81.1 Chronic pulmonary edema; I50.33 Acute on chronic diastolic (congestive) heart failure; Z20.822 Contact with and (suspected) exposure to COVID-19; R91.8 Other nonspecific abnormal finding of lung field; J44.9 Chronic obstructive pulmonary disease, unspecified; R73.09 Other abnormal glucose; E01.0 Iodine-deficiency related diffuse (endemic) goiter; Z87.891 Personal history of nicotine dependence
CPT/HCPCS: 36415; 36600; 71045; 71046; 71275; 74177; 76775; 80048; 80053; 81001; 82805; 83036; 83735; 83880; 84484; 85025; 85380; 93005; 94640; 96365; 96375; 99285; A9270; C8929; C9803; J1650; J1940; J1956; J3475; Q9957; Q9967; U0003; U0005